=== PATIENT | male | born 1960 | race Caucasian/White ===

== ENCOUNTER → 2023-10-17 07:20 | Outpatient (REF) | payer BC, SELFPAY ==
[2023-10-19 10:50] LABS: PSA Total 5.9 ng/mL (0.0-4.0)
== END ==
LOC: REG 07:20
PROVIDERS: ATTENDING PHYSICIAN Specialist; FAMILY PHYSICIAN Family Medicine
DX: R97.20 Elevated prostate specific antigen [PSA] (principal)
CPT/HCPCS: 36415; 84153; 84154

== ENCOUNTER 2024-01-16 06:14 | Day surgery (SDC) | payer BC, SELFPAY ==
[2024-01-02 07:09] VITALS: BMI 28.0
[2024-01-02 08:59] LABS: Hematocrit 43.4 % (39.0-52.0); Hemoglobin 15.6 g/dL (13.0-18.0); Mean Corp Hgb Conc. 35.9 g/dL (33.0-37.0); Mean Corpuscular Hgb 33.9 pg (27.0-31.0); Mean Corpuscular Volume 94.3 fL (80.0-94.0); Mean Platelet Volume 9.9 fL (7.4-10.4); Platelet Count 255 10^3/uL (130-400); Red Cell Dist. Width 12.7 % (11.5-14.5); White Blood Cell Count 7.9 10^3/uL (4.8-10.8)
[2024-01-02 09:01] LABS: Urine Albumin Negative (Neg - Trace); Urine Bilirubin Negative (Negative); Urine Character Clear (Clear); Urine Color Yellow; Urine Glucose Negative (Negative); Urine Ketone Negative (Negative); Urine Leukocyte Negative (Negative); Urine Nitrite Negative (Negative); Urine Occult Blood Negative (Negative); Urine Urobilinogen Negative (Neg - 1+)
[2024-01-02 09:07] LABS: INR 1.04; PT 13.4 Sec (11.4-14.6)
[2024-01-02 09:08] LABS: APTT 30.4 Sec (23.4-35.0)
[2024-01-02 09:27] LABS: Blood Urea Nitrogen 23 mg/dl (9-20); Calcium 9.6 mg/dl (8.4-10.2); Carbon Dioxide 28 mmol/L (22-30); Chloride 105 mmol/L (98-107); Estimated Creatinine Clearance 96 ml/min; Glucose 99 mg/dl (70-99); Potassium 4.7 mmol/L (3.5-5.1); Sodium 139 mmol/L (135-145); eGFR > 60.00
[2024-01-16] VITALS (13 sets, daily range): BP systolic 122–156; BP diastolic 67–87; BMI 28.0; BMI 28.8
--- NOTE | 2024-01-16 14:15 | PTCARENOTE ---
Pt received from the PACU via bed. Transport was w/o incident. Pt is AAOx3, HRR, lungs clear, respirations easy, pulse ox 99%RA. Pt with CBI infusing w/o difficulty. Urine is pink tinged, no blood clots noted at this time. VSS, Pt is afebrile. Pt
denies pain or nausea at present. Pt instructed on plan of care. Pt verbalized understanding of instructions. Call jaimes is within reach.
[2024-01-17 03:21] VITALS: BP 143/74
--- NOTE | 2024-01-17 07:00 | PTCARENOTE ---
CBI removed @ 0600 per order.
[2024-01-17 07:30] VITALS: BP 156/84
[2024-01-17] MEDS: TYLENOL 650 MG PO (09:45)
--- NOTE | 2024-01-17 10:03 | W.PN.SURGUPD ---
Surgical Update
Surgical Update
Stable 1 day s/p TURP for biopsy/diagnostic purposes
Dysuria and gross hematuria as expected
---
Home today
--- NOTE | 2024-01-17 10:04 | W.DS.TRANS ---
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
-
Discharge Instructions:
Sleep Apnea Risk Low
Discharge Diagnosis/Procedures s/p TURP
Diet No restrictions
Activity No strenuous activity
Driving Restrictions As prior to admission
Bathing Restrictions None
Instructions:
Stand-Alone Forms:
Changes to Home Medications: No
Discharge Medications:
DC Medications w/original date entered in [employer] [facility] [employer]
methenam 118 mg-m.blue 10 mg-s.phos 40.8 mg-p.salic 36 mg-hyos capsule (Uro-MP) 1 tab PO QID urinary tract irritation #30 caps 01/16/24
Home Medication Changes
Pending Results: No
[2024-01-17 11:10] VITALS: BP 150/78
--- NOTE | 2024-01-17 15:38 | CM ---
met with patient and his at [facility].ruth lives with his spouse in house with 4 keyona,his bed and bath is on the second level,he amb I and is I with bathig,grooming.his pc is [facility] and he usses [facility] in [place].he has
nver had a vn or been in [facility].patent is sp turp.he is voiding,pain is cotrolled and he is stable fo dc home with no needs. 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
== END 2024-01-17 12:34 | disposition home or self-care (01) ==
LOC: SDS 06:14
PROVIDERS: ATTENDING PHYSICIAN Specialist; FAMILY PHYSICIAN Physician Assistant Medical
DX: N40.0 Benign prostatic hyperplasia without lower urinary tract symptoms (principal); N13.9 Obstructive and reflux uropathy, unspecified; N32.89 Other specified disorders of bladder; R97.20 Elevated prostate specific antigen [PSA]; R93.49 Abnormal radiologic findings on diagnostic imaging of other urinary organs
CPT/HCPCS: 52601; 88305; 36415; 80048; 81003; 85027; 85610; 85730; 88344; 93005

== ENCOUNTER → 2024-07-02 06:39 | Outpatient (REF) | payer BC, SELFPAY ==
[2024-07-04 01:30] LABS: PSA Total 2.7 ng/mL (0.0-4.0)
== END ==
LOC: REG 06:39
PROVIDERS: ATTENDING PHYSICIAN Specialist; FAMILY PHYSICIAN Physician Assistant
DX: R97.20 Elevated prostate specific antigen [PSA] (principal)
CPT/HCPCS: 36415; 84153; 84154

== ENCOUNTER 2024-11-12 06:16 | Day surgery (SDC) | payer BC, SELFPAY | END 2024-11-12 08:57 | disposition home or self-care (01) | LOC: GI 06:16 | PROVIDERS: ATTENDING PHYSICIAN Specialist | DX: Z12.11 Encounter for screening for malignant neoplasm of colon (principal); D12.3 Benign neoplasm of transverse colon; K63.5 Polyp of colon; K57.30 Diverticulosis of large intestine without perforation or abscess without bleeding; Z86.0101 Personal history of adenomatous and serrated colon polyps | CPT/HCPCS: 45385; 88305 ==

== ENCOUNTER → 2025-03-08 07:04 | Outpatient (REF) | payer BC, SELFPAY ==
[2025-03-08 07:42] LABS: Urine Character Clear (Clear)
[2025-03-08 07:54] LABS: Urine White Cell 0-2 /HPF (0-5)
[2025-03-08 08:55] LABS: Hematocrit 44.8 % (39.0-52.0); Hemoglobin 15.8 g/dL (13.0-18.0); Mean Corp Hgb Conc. 35.3 g/dL (33.0-37.0); Mean Corpuscular Volume 94.9 fL (80.0-94.0); Nucleated Red Blood Cells % 0 % (-); Platelet Count 209 10^3/uL (130-400); Red Cell Dist. Width 13.0 % (11.5-14.5)
[2025-03-08 09:36] LABS: ALT (SGPT) 32 U/L (0-50); AST (SGOT) 24 U/L (17-59); Albumin 4.2 g/dl (3.5-5.0); Alkaline Phosphatase 61 U/L (38-126); Blood Urea Nitrogen 16 mg/dl (9-20); Calcium 9.7 mg/dl (8.4-10.2); Carbon Dioxide 29 mmol/L (22-30); Chloride 106 mmol/L (98-107); Glucose 92 mg/dl (70-99); Potassium 4.5 mmol/L (3.5-5.1); Sodium 138 mmol/L (135-145); Total Protein 7.0 g/dl (6.3-8.2); eGFR > 60.00
[2025-03-08 10:02] LABS: TSH 3.54 uIU/ml (0.47-4.68)
[2025-03-10 12:46] LABS: Lyme Antibody Screen, EIA Negative (Negative)
== END ==
LOC: REG 07:04
PROVIDERS: ATTENDING PHYSICIAN Physician Assistant
DX: R53.83 Other fatigue (principal)
CPT/HCPCS: 36415; 80053; 81003; 81015; 84443; 85025; 86618

== ENCOUNTER → 2025-04-13 12:06 | Outpatient (REF) | payer BC, SELFPAY ==
[2025-04-13 12:45] LABS: Urine Character Clear (Clear)
[2025-04-13 12:52] LABS: Urine Squamous Cell 0-2 /LPF (Few)
[2025-04-13 12:53] LABS: Urine Red Blood Cell 0-2 /HPF (0-2); Urine White Cell 0-2 /HPF (0-5)
== END ==
LOC: REG 12:06
PROVIDERS: ATTENDING PHYSICIAN Physician Assistant
DX: R31.29 Other microscopic hematuria (principal); R80.9 Proteinuria, unspecified
CPT/HCPCS: 81003; 81015